=== PATIENT | female | born 1955 | race Caucasian/White ===

== ENCOUNTER 2016-10-15 10:24 | Observation (INO) | payer OTHER ==
[~2016-10-15] VITALS: Ht 165.1 cm; Wt 75.0 kg
[2016-10-15 11:04] LABS: BASOPHILS 0.6 % (0-2); EOSINOPHILS 3.2 % (0-7); HEMATOCRIT 42.4 % (36.0-48.0); HEMOGLOBIN 14.7 g/dL (12-16); IMMATURE GRANULOCYTES 0.1 % (0-5); LYMPHOCYTES 20.8 % (15-50); MCH 33.8 pg (26.0-34.0); MCHC 34.7 g/dL (31.0-37.0); MCV 97.5 fL (80.0-100.0); MEAN PLATELET VOLUME 10.6 fL (7.4-10.4); MONOCYTES 5.3 % (2-11); PLATELET COUNT 258 10x3/uL (130-400); RBC 4.35 10x6/uL (4.00-5.40); RDW 12.3 % (11.5-14.5); WBC 9.1 10x3/uL (4.8-10.8)
[2016-10-15 11:06] LABS: APPEARANCE CLEAR (CLEAR); BILIRUBIN NEGATIVE (NEGATIVE); COLOR YELLOW (YELLOW); GLUCOSE NEGATIVE (NEGATIVE); KETONE NEGATIVE (NEGATIVE); LEUKOCYTE ESTERASE NEGATIVE (NEGATIVE); NITRITE NEGATIVE (NEGATIVE); PROTEIN NEGATIVE (NEGATIVE); SPECIFIC GRAVITY 1.015 (1.005-1.020); UROBILINOGEN NORMAL (NORMAL)
[2016-10-15 11:16] LABS: INR 0.93 (0.85-1.17); PROTIME 12.3 SECONDS (11.6-15.0)
[2016-10-15 11:22] LABS: ALBUMIN 3.8 g/dL (3.4-5.0); ALKALINE PHOSPHATASE 75 U/L (46-116); ALT (SGPT) 34 U/L (10-68); BILIRUBIN - TOTAL 0.42 mg/dL (0.2-1.3); CALC OSMOLALITY 282 mosm/kg (275-300); CALCIUM 9.5 mg/dL (8.5-10.1); CARBON DIOXIDE 26.9 mmol/L (21.0-32.0); CHLORIDE - SERUM 107 mmol/L (98-107); CREATININE - SERUM 0.8 mg/dL (0.6-1.3); GLUCOSE 108 mg/dL (74-106); PROTEIN - SERUM 6.9 g/dL (6.4-8.2); SODIUM 141 mmol/L (136-145); UREA NITROGEN 15 mg/dL (7-18); eGFR NON AFRICAN AMERICAN 78 mL/min (90-120)
--- NOTE | 2016-10-15 13:03 | NUR ---
RECEIVED PT TO ROOM 2213 VIA WHEELCHAIR, PT ACCOMPANIED BY RENY. PT ORIENTED TO ROOM AND CALL LIGHT. IV NOTED TO RT HAND SL. WILL ASSESS PT AND START PLAN OF CARE.
[2016-10-15 13:37] VITALS: Ht 165.1 cm; Wt 75.0 kg
[2016-10-15 14:53] LABS: BASOPHILS 0.5 % (0-2); EOSINOPHILS 3.4 % (0-7); HEMATOCRIT 39.9 % (36.0-48.0); HEMOGLOBIN 13.6 g/dL (12-16); IMMATURE GRANULOCYTES 0.3 % (0-5); LYMPHOCYTES 28.6 % (15-50); MCH 33.1 pg (26.0-34.0); MCHC 34.1 g/dL (31.0-37.0); MCV 97.1 fL (80.0-100.0); MEAN PLATELET VOLUME 10.5 fL (7.4-10.4); MONOCYTES 7.3 % (2-11); NEUTROPHILS 59.9 % (40-80); PLATELET COUNT 233 10x3/uL (130-400); RBC 4.11 10x6/uL (4.00-5.40); RDW 12.3 % (11.5-14.5); WBC 7.4 10x3/uL (4.8-10.8)
--- NOTE | 2016-10-15 15:11 | NUR ---
PAGED CYRIL ANDRADE, WAITING ON HER TO CALL BACK.
--- NOTE | 2016-10-15 16:20 | NUR ---
PAGED DR. GELLER WAITING ON HIM TO CALL BACK. 1625- RECEIVED CALL BACK FROM DR. GELLER. INFORMED THAT PT IS C/O PAIN TO ABD THAT RADIATES TO BACK, WANTS SOMTHING FOR PAIN. DR. GELLER STATED TO ORDER DEMEROL 25MG Q6PRN.
--- NOTE | 2016-10-15 16:41 | NUR ---
ADMINSITERED 25MG OF DEMEROL FOR PAIN LEVEL OF 10/10. PROTONIX DRIP STATED INFUSING AT THIS TIME. PT DENIES ANY NEEDS AT THIS TIME. CALL LIGHT IN REACH, NAD NOTED, WILL CONTINUE TO MONITOR.
[2016-10-15] MEDS ORDERED: LEXAPRO10 MG PO (17:03)
[2016-10-15] MEDS ORDERED: HYZAAR 50-12.51 TAB PO (17:03)
[2016-10-15] MEDS ORDERED: NEXIUM40 MG PO (17:03)
[2016-10-15] MEDS ORDERED: KLONOPIN0.5 MG PO (17:04)
[2016-10-15] MEDS ORDERED: BAYER CHEWABLE81 MG PO (17:05)
[2016-10-15] MEDS ORDERED: VOLTAREN75 MG PO (17:14)
[2016-10-15] MEDS ORDERED: FAMVIR500 MG PO (17:15)
--- NOTE | 2016-10-15 18:12 | NUR ---
RATIONAL FOR SCD'S EXPLAINED TO PT, PT REFUSED TO WEAR SCD'S AT THIS TIME.
--- NOTE | 2016-10-15 19:45 | NUR ---
RECIEVED SHIFT REPORT. PT IS LYING IN BED. ALERT AND ORIENTED AND ABLE TO VERBALIZE NEEDS. IV IS PATENT AND FLUIDS ARE RUNNING PER ORDER. PT IS AMBULATORY BUT WAS INSTRUCTED TO CALL FOR ANY ASSISTANCE NEEDED. PT STATES PAIN IS 8/10. NO NEEDS ARE VERBALIZED AT THIS TIME. WILL CONTINUE TO MONITOR. SIDE RAILS ARE UP X 2. BED IS IN LOWEST POSITION. CALL LIGHT IS WITHIN REACH.
[2016-10-15 20:00] VITALS: BP 107/67
--- NOTE | 2016-10-15 20:10 | NUR ---
SHIFT ASSESSMENT COMPLETED. PT STATUS REMAINS UNCHANGED FROM PREVIOUS. NO NEEDS ARE VOICED. WILL MONITOR. SIDE RAILS X 2. BED LOW. CALL LIGHT IN REACH.
[2016-10-15 22:21] LABS: BASOPHILS 0.7 % (0-2); HEMATOCRIT 39.9 % (36.0-48.0); HEMOGLOBIN 13.5 g/dL (12-16); IMMATURE GRANULOCYTES 0.1 % (0-5); LYMPHOCYTES 29.5 % (15-50); MCH 33.3 pg (26.0-34.0); MCHC 33.8 g/dL (31.0-37.0); MCV 98.3 fL (80.0-100.0); MEAN PLATELET VOLUME 10.5 fL (7.4-10.4); MONOCYTES 6.8 % (2-11); NEUTROPHILS 59.9 % (40-80); PLATELET COUNT 221 10x3/uL (130-400); RBC 4.06 10x6/uL (4.00-5.40); RDW 12.5 % (11.5-14.5); WBC 7.6 10x3/uL (4.8-10.8)
[2016-10-16] VITALS: BP 104/68
[2016-10-16 02:03] LABS: BASOPHILS 0.6 % (0-2); EOSINOPHILS 4.1 % (0-7); HEMATOCRIT 40.2 % (36.0-48.0); HEMOGLOBIN 13.8 g/dL (12-16); IMMATURE GRANULOCYTES 0.1 % (0-5); LYMPHOCYTES 29.6 % (15-50); MCH 33.5 pg (26.0-34.0); MCHC 34.3 g/dL (31.0-37.0); MCV 97.6 fL (80.0-100.0); MEAN PLATELET VOLUME 10.2 fL (7.4-10.4); MONOCYTES 7.1 % (2-11); NEUTROPHILS 58.5 % (40-80); PLATELET COUNT 215 10x3/uL (130-400); RBC 4.12 10x6/uL (4.00-5.40); RDW 12.5 % (11.5-14.5); WBC 7.1 10x3/uL (4.8-10.8)
[2016-10-16 04:00] VITALS: BP 109/72
[2016-10-16 07:13] LABS: BASOPHILS 0.8 % (0-2); EOSINOPHILS 3.4 % (0-7); HEMATOCRIT 41.9 % (36.0-48.0); HEMOGLOBIN 14.4 g/dL (12-16); LYMPHOCYTES 31.3 % (15-50); MCH 33.8 pg (26.0-34.0); MCHC 34.4 g/dL (31.0-37.0); MCV 98.4 fL (80.0-100.0); MEAN PLATELET VOLUME 10.6 fL (7.4-10.4); MONOCYTES 6.2 % (2-11); NEUTROPHILS 58.3 % (40-80); PLATELET COUNT 251 10x3/uL (130-400); RBC 4.26 10x6/uL (4.00-5.40); RDW 12.6 % (11.5-14.5); WBC 6.1 10x3/uL (4.8-10.8)
[2016-10-16 07:37] LABS: CALC OSMOLALITY 284 mosm/kg (275-300); CARBON DIOXIDE 29.6 mmol/L (21.0-32.0); CHLORIDE - SERUM 107 mmol/L (98-107); CREATININE - SERUM 0.8 mg/dL (0.6-1.3); GLUCOSE 93 mg/dL (74-106); POTASSIUM - SERUM 3.8 mmol/L (3.5-5.1); SODIUM 143 mmol/L (136-145); UREA NITROGEN 12 mg/dL (7-18); eGFR NON AFRICAN AMERICAN 78 mL/min (90-120)
[2016-10-16 08:25] VITALS: BP 133/83
--- NOTE | 2016-10-16 10:43 | NUR ---
Nurse Loan called stated patient very upset because nurse placed on isolation for outbreak of herpes. I spoke with patient regarding illness. She has had multilple outbreaks in her life. Explained to patient that because this was not the primary outbreak contact isolation was not required but she must keep lesions covered with underwear. Spoke with [employer] explained the removal of isolation. Explained to patient that nursing was using safety precautions until they could reach me. PATIENT VOICES UNDERSTANDING SHE IS NO LONGER ANGRY WITH STAFF. BROCHURE FROM [facility] FAQ GIVEN TO PATIENT EDUCATIONAL MATERIAL.
--- NOTE | 2016-10-16 10:50 | NUR ---
AMBULATING IN ROOM AT THIS TIME. DENIES NEEDS. RESPIRATIONS EVEN AND NON LABORED. CALL LIGHT IN REACH, WILL CONTINUE WITH PLAN OF CARE.
--- NOTE | 2016-10-16 11:45 | NUR ---
AMBULATING IN HALLWAYS AT THIS TIME.
[2016-10-16] MEDS ORDERED: FAMVIR500 MG PO (13:30)
--- NOTE | 2016-10-16 13:34 | NUR ---
FOLLOW UP PAPERWORK REVIEWED WITH PT. DENIES QUESTIONS OR CONCERNS. WILL D/C HOME.
== END 2016-10-16 13:34 | disposition home or self-care (01) ==
LOC: D.ER 10:24 → D.MS 12:36 → OBSVTIME 12:36 → D.MS 10-16 13:34
PROVIDERS: Emergency Medicine; ADMIT Family Medicine
DX: K92.2 Gastrointestinal hemorrhage, unspecified (principal); I10 Essential (primary) hypertension; E78.5 Hyperlipidemia, unspecified; D64.9 Anemia, unspecified; K21.9 Gastro-esophageal reflux disease without esophagitis

== ENCOUNTER → 2016-12-07 10:53 | Outpatient (CLI) | payer OTHER ==
[2016-10-15 13:37] VITALS: BMI 27.5
[~2016-12-07 10:53] MED LIST: BAYER CHEWABLE81 MG PO; FAMVIR500 MG PO; HYZAAR 50-12.51 TAB PO; KLONOPIN0.5 MG PO; LEXAPRO10 MG PO; NEXIUM40 MG PO; VOLTAREN75 MG PO
[2016-12-07 12:13] LABS: T4 THYROXIN - FREE 0.87 ng/dL (0.76-1.46); THYROID STIMULATING HORMONE 2.54 uIU/mL (0.36-3.74)
== END | disposition home or self-care (01) ==
LOC: D.RAD 10:53
PROVIDERS: Internal Medicine Gastroenterology
DX: K59.00 Constipation, unspecified (principal); R10.9 Unspecified abdominal pain

== ENCOUNTER 2018-09-02 07:05 | Inpatient (IN) | payer SELFPAY ==
[~2018-09-02] VITALS: Ht 165.1 cm; Wt 77.1 kg
[2018-09-02] MEDS ORDERED: ZOCOR40 MG PO (07:36)
[2018-09-02 07:55] LABS: BASOPHILS 0.1 % (0-2); EOSINOPHILS 0.5 % (0-7); HEMATOCRIT 40.9 % (36.0-48.0); HEMOGLOBIN 14.1 g/dL (12-16); IMMATURE GRANULOCYTES 0.2 % (0-5); MCH 33.2 pg (26.0-34.0); MCHC 34.5 g/dL (31.0-37.0); MCV 96.2 fL (80.0-100.0); MEAN PLATELET VOLUME 10.2 fL (7.4-10.4); MONOCYTES 4.5 % (2-11); NEUTROPHILS 88.7 % (40-80); PLATELET COUNT 223 10x3/uL (130-400); RBC 4.25 10x6/uL (4.00-5.40); RDW 12.6 % (11.5-14.5); WBC 15.2 10x3/uL (4.8-10.8)
[2018-09-02 07:56] LABS: APPEARANCE CLEAR (CLEAR); BILIRUBIN NEGATIVE (NEGATIVE); COLOR YELLOW (YELLOW); GLUCOSE NEGATIVE (NEGATIVE); KETONE SMALL mg/dL (NEGATIVE); NITRITE NEGATIVE (NEGATIVE); PROTEIN TRACE mg/dL (NEGATIVE); SPECIFIC GRAVITY 1.005 (1.005-1.020); UROBILINOGEN NORMAL (NORMAL)
[2018-09-02 07:57] LABS: ALBUMIN 3.4 g/dL (3.4-5.0); ALKALINE PHOSPHATASE 63 U/L (46-116); ALT (SGPT) 38 U/L (10-68); BACTERIA FEW /hpf (NONE SEEN); BILIRUBIN - TOTAL 0.68 mg/dL (0.2-1.3); CALC OSMOLALITY 276 mosm/kg (275-300); CALCIUM 9.8 mg/dL (8.5-10.1); CARBON DIOXIDE 24.4 mmol/L (21.0-32.0); CHLORIDE - SERUM 104 mmol/L (98-107); CREATININE - SERUM 0.8 mg/dL (0.6-1.3); EPITHELIAL CELLS OCC /hpf (0-5); GLUCOSE 113 mg/dL (74-106); MUCUS <1+ /lpf (NONE SEEN); POTASSIUM - SERUM 3.8 mmol/L (3.5-5.1); PROTEIN - SERUM 7.2 g/dL (6.4-8.2); RED CELLS - URINE 0-5 /hpf (0-5); SODIUM 138 mmol/L (136-145); UREA NITROGEN 13 mg/dL (7-18); WHITE CELLS - URINE RARE /hpf (0-5); eGFR NON AFRICAN AMERICAN 77 mL/min (90-120)
[2018-09-02 08:00] LABS: AMYLASE - SERUM 20 U/L (25-115); LIPASE 77 U/L (73-393); TROPONIN-I < 0.017 ng/mL (0.000-0.060)
[2018-09-02] MEDS ORDERED: BAYER CHEWABLE81 MG PO (11:47)
--- NOTE | 2018-09-02 12:56 | MORECARE ---
CASE MANAGEMENT DISCHARGE SUMMARY PATIENT: ONEAL AMBRIZ UNIT: [id number] ADM DATE: 09/02/18 AGE: 63 : 59 SEX: F ROOM/BED: D.2231 AUTHOR: DANYELLDOC PHYSICIAN: REFERRING PHYSICIAN: MARIIA JOSE DO DATE OF SERVICE: 09/02/18 Discharge Plan Patient Name: ONEAL AMBRIZ Facility: [facility]:[place] : 1955 Planned Disposition: Home Anticipated Discharge Date: 09/07/18 Discharge Date: Expected LOS: 5 Initial Reviewer: [email or web address] Initial Review Date: 09/02/2018 Generated: 09/02/18 1:56 pm DCP- Discharge Planning Updated by [email or web address]: Emily Danielle on 09/02/18 11:[address] Patient Name: ONEAL AMBRIZ Admission Status: ER Accout number: [id number] Admission Date: 09-02-2018 : 1955 Admission Diagnosis: Attending: MARIIA JOSE Current LOS: 1 Anticipated DC Date: 09-07-2018 Planned Disposition: Home Primary Insurance: UNINSURED DISCOUNT PLAN Discharge Planning Comments: CM met with patient to complete initial dc planning assessment. CM educated patient on the CM role and verbal consent given by patient to complete assessment. CM verified patient's address, phone number, and emergency contact phone numbers. Patient lives at home with hr and report she is independent in her care at home. At discharge patient plans to return home and feels this is a safe discharge. CM discussed availability of home health, rehab services, and medical equipment. Patient denied known discharge needs at this time. Patient reports her will transport her home at time of discharge. CM will continue to follow and will assist as needed with dc plans/needs. Tunnel Heading Supervisor: Emily Danielle RN, [facility] DCPIA - Discharge Planning Initial Assessment Updated by [email or web address]: Emily Danielle on 09/02/18 12:52 pm * Is the patient Alert and Oriented? Yes * How many steps to enter\exit or inside your home? None * PCP Dr Noonan * Pharmacy [facility] or [facility] mail order * Preadmission Environment Home with Family * ADLs Independent * Equipment None * List name and contact numbers for known caregivers / representatives who currently or will assist patient after discharge: Ryley Ambriz - spouse - [phone] * Verbal permission to speak to the caregivers and representatives has been obtained from the patient. Yes * Community resources currently utilized None * Additional services required to return to the preadmission environment? No * Can the patient safely return to the preadmission environment? Yes * Has this patient been hospitalized within the prior 30 days at any hospital? No Patient Name: ONEAL AMBRIZ Page [id number] at 1256 All edits/amendments must be made on the electronic document DICTATION DATE: 09/02/18 1256 TENNIS CENTRE MANAGER: NAI 09/02/18 1256 RPT#: [id number] DC DATE: STATUS: ADM IN [facility] [address] [place] [address] END OF REPORT
[2018-09-02 15:34] VITALS: BP 111/78; BMI 28.3
[2018-09-02 16:56] VITALS: BP 111/78
[2018-09-02 20:00] VITALS: BP 109/68
[2018-09-03] VITALS: BP 100/71
[2018-09-03 04:00] VITALS: BP 106/74
[2018-09-03 05:26] LABS: BASOPHILS 0.1 % (0-2); EOSINOPHILS 0.3 % (0-7); HEMATOCRIT 36.8 % (36.0-48.0); HEMOGLOBIN 12.7 g/dL (12-16); IMMATURE GRANULOCYTES 0.2 % (0-5); LYMPHOCYTES 8.3 % (15-50); MCH 32.9 pg (26.0-34.0); MCHC 34.5 g/dL (31.0-37.0); MCV 95.3 fL (80.0-100.0); MEAN PLATELET VOLUME 10.3 fL (7.4-10.4); MONOCYTES 6.5 % (2-11); NEUTROPHILS 84.6 % (40-80); PLATELET COUNT 207 10x3/uL (130-400); RBC 3.86 10x6/uL (4.00-5.40); RDW 12.4 % (11.5-14.5); WBC 13.2 10x3/uL (4.8-10.8)
[2018-09-03 05:47] LABS: ALBUMIN 2.9 g/dL (3.4-5.0); ALKALINE PHOSPHATASE 58 U/L (46-116); ALT (SGPT) 31 U/L (10-68); BILIRUBIN - TOTAL 1.08 mg/dL (0.2-1.3); CALC OSMOLALITY 273 mosm/kg (275-300); CALCIUM 9.4 mg/dL (8.5-10.1); CARBON DIOXIDE 26.3 mmol/L (21.0-32.0); CHLORIDE - SERUM 100 mmol/L (98-107); CREATININE - SERUM 0.8 mg/dL (0.6-1.3); GLUCOSE 113 mg/dL (74-106); POTASSIUM - SERUM 3.6 mmol/L (3.5-5.1); PROTEIN - SERUM 6.7 g/dL (6.4-8.2); SODIUM 137 mmol/L (136-145); UREA NITROGEN 10 mg/dL (7-18); eGFR NON AFRICAN AMERICAN 77 mL/min (90-120)
[2018-09-03 12:43] VITALS: BP 108/66
[2018-09-03 14:06] VITALS: BMI 28.2
[2018-09-03 14:15] LABS: APTT 31.3 SECONDS (22.8-39.4); INR 1.21 (0.85-1.17); PROTIME 14.8 SECONDS (11.6-15.0)
[2018-09-03 15:11] VITALS: Ht 165.1 cm; Wt 77.1 kg
[2018-09-03 16:29] VITALS: BP 114/66
[2018-09-03 20:00] VITALS: BP 115/78
[2018-09-04 06:52] LABS: BASOPHILS 0.1 % (0-2); EOSINOPHILS 1.6 % (0-7); HEMATOCRIT 34.6 % (36.0-48.0); HEMOGLOBIN 11.9 g/dL (12-16); IMMATURE GRANULOCYTES 0.3 % (0-5); LYMPHOCYTES 11.1 % (15-50); MCH 32.4 pg (26.0-34.0); MCHC 34.4 g/dL (31.0-37.0); MCV 94.3 fL (80.0-100.0); MEAN PLATELET VOLUME 10.1 fL (7.4-10.4); MONOCYTES 6.9 % (2-11); PLATELET COUNT 233 10x3/uL (130-400); RBC 3.67 10x6/uL (4.00-5.40); RDW 12.2 % (11.5-14.5); WBC 11.1 10x3/uL (4.8-10.8)
[2018-09-04 06:59] LABS: ALBUMIN 2.5 g/dL (3.4-5.0); ALKALINE PHOSPHATASE 49 U/L (46-116); BILIRUBIN - TOTAL 0.39 mg/dL (0.2-1.3); CALCIUM 8.9 mg/dL (8.5-10.1); CARBON DIOXIDE 25.2 mmol/L (21.0-32.0); CHLORIDE - SERUM 105 mmol/L (98-107); CREATININE - SERUM 0.7 mg/dL (0.6-1.3); GLUCOSE 85 mg/dL (74-106); POTASSIUM - SERUM 3.3 mmol/L (3.5-5.1); SODIUM 139 mmol/L (136-145); eGFR NON AFRICAN AMERICAN 90 mL/min (90-120)
[2018-09-04 07:00] LABS: ALT (SGPT) 22 U/L (10-68); CALC OSMOLALITY 276 mosm/kg (275-300); UREA NITROGEN 13 mg/dL (7-18)
[2018-09-04 09:44] VITALS: BP 120/85
[2018-09-04 12:00] VITALS: BP 111/63
[2018-09-04 16:23] LABS: APPEARANCE CLEAR (CLEAR); BILIRUBIN NEGATIVE (NEGATIVE); COLOR YELLOW (YELLOW); GLUCOSE NEGATIVE (NEGATIVE); KETONE NEGATIVE (NEGATIVE); NITRITE NEGATIVE (NEGATIVE); PROTEIN NEGATIVE (NEGATIVE); SPECIFIC GRAVITY 1.015 (1.005-1.020); UROBILINOGEN NORMAL (NORMAL)
[2018-09-04 18:35] VITALS: BP 105/76
[2018-09-04 20:00] VITALS: BP 121/81
[2018-09-05 04:00] VITALS: BP 116/71
[2018-09-05 05:05] LABS: BASOPHILS 0.2 % (0-2); EOSINOPHILS 2.7 % (0-7); HEMATOCRIT 32.5 % (36.0-48.0); HEMOGLOBIN 11.3 g/dL (12-16); IMMATURE GRANULOCYTES 0.1 % (0-5); LYMPHOCYTES 13.3 % (15-50); MCH 32.7 pg (26.0-34.0); MCHC 34.8 g/dL (31.0-37.0); MCV 93.9 fL (80.0-100.0); MEAN PLATELET VOLUME 9.8 fL (7.4-10.4); MONOCYTES 8.7 % (2-11); PLATELET COUNT 245 10x3/uL (130-400); RBC 3.46 10x6/uL (4.00-5.40); RDW 12.4 % (11.5-14.5); WBC 9.8 10x3/uL (4.8-10.8)
[2018-09-05 05:49] LABS: ALBUMIN 2.3 g/dL (3.4-5.0); ALKALINE PHOSPHATASE 44 U/L (46-116); ALT (SGPT) 23 U/L (10-68); BILIRUBIN - TOTAL 0.34 mg/dL (0.2-1.3); CALC OSMOLALITY 281 mosm/kg (275-300); CALCIUM 8.5 mg/dL (8.5-10.1); CHLORIDE - SERUM 109 mmol/L (98-107); CREATININE - SERUM 0.7 mg/dL (0.6-1.3); GLUCOSE 93 mg/dL (74-106); POTASSIUM - SERUM 3.4 mmol/L (3.5-5.1); PROTEIN - SERUM 5.6 g/dL (6.4-8.2); SODIUM 142 mmol/L (136-145); eGFR NON AFRICAN AMERICAN 90 mL/min (90-120)
[2018-09-05 06:00] LABS: UREA NITROGEN 9 mg/dL (7-18)
[2018-09-05 09:38] VITALS: BP 134/84
[2018-09-05] MEDS ORDERED: LEVAQUIN750 MG PO (12:53)
[2018-09-05] MEDS ORDERED: FOLIC ACID1 MG PO (12:53)
[2018-09-05] MEDS ORDERED: FLAGYL500 MG PO (12:53)
[2018-09-05] MEDS ORDERED: VITAMIN B-1100 M1 PO (12:53)
--- NOTE | 2018-09-06 11:56 | MORECARE ---
CASE MANAGEMENT DISCHARGE SUMMARY PATIENT: ONEAL AMBRIZ UNIT: [id number] ADM DATE: 09/02/18 AGE: 63 : 59 SEX: F ROOM/BED: D.2231 AUTHOR: ADARSH CHILD PHYSICIAN: REFERRING PHYSICIAN: MARIIA JOSE DO DATE OF SERVICE: 09/06/18 Discharge Plan Patient Name: ONEAL AMBRIZ Facility: [facility]:[place] : 1955 Planned Disposition: Home Anticipated Discharge Date: 09/07/18 Discharge Date: 09/05/2018 Expected LOS: 5 Initial Reviewer: [email or web address] Initial Review Date: 09/02/2018 Generated: 09/06/18 12:56 pm DCP- Discharge Planning Updated by [email or web address]: Emily Danielle on 09/02/18 11:[address] Patient Name: ONEAL AMBRIZ Admission Status: ER Accout number: [id number] Admission Date: 09-02-2018 : 1955 Admission Diagnosis: Attending: MARIIA JOSE Current LOS: 1 Anticipated DC Date: 09-07-2018 Planned Disposition: Home Primary Insurance: UNINSURED DISCOUNT PLAN Discharge Planning Comments: CM met with patient to complete initial dc planning assessment. CM educated patient on the CM role and verbal consent given by patient to complete assessment. CM verified patient's address, phone number, and emergency contact phone numbers. Patient lives at home with hr and report she is independent in her care at home. At discharge patient plans to return home and feels this is a safe discharge. CM discussed availability of home health, rehab services, and medical equipment. Patient denied known discharge needs at this time. Patient reports her will transport her home at time of discharge. CM will continue to follow and will assist as needed with dc plans/needs. Edgerman: Emily Danielle RN, [facility] DCPIA - Discharge Planning Initial Assessment Updated by [email or web address]: Emily Danielle on 09/02/18 12:52 pm * Is the patient Alert and Oriented? Yes * How many steps to enter\exit or inside your home? None * PCP Dr Noonan * Pharmacy [facility] or [facility] mail order * Preadmission Environment Home with Family * ADLs Independent * Equipment None * List name and contact numbers for known caregivers / representatives who currently or will assist patient after discharge: Ryley Ambriz - [facility] - [phone] * Verbal permission to speak to the caregivers and representatives has been obtained from the patient. Yes * Community resources currently utilized None * Additional services required to return to the preadmission environment? No * Can the patient safely return to the preadmission environment? Yes * Has this patient been hospitalized within the prior 30 days at any hospital? No Last DP export: 09/02/18 11:56 a Patient Name: ONEAL AMBRIZ Page [id number] at 1156 All edits/amendments must be made on the electronic document DICTATION DATE: 09/06/18 1156 HEAT AND FROST INSULATOR HELPER: NAI 09/06/18 1156 RPT#: [id number] DC DATE:09/05/18 STATUS: DIS IN [facility] [address] [place] [address] END OF REPORT
== END 2018-09-05 16:04 | disposition home or self-care (01) | DRG 392 ==
LOC: D.ER 07:05 → D.MS 10:34
PROVIDERS: Emergency Medicine; Surgery; ADMIT Family Medicine; ATTEND Family Medicine
DX: K57.20 Diverticulitis of large intestine with perforation and abscess without bleeding (principal); E86.0 Dehydration; E78.5 Hyperlipidemia, unspecified; I10 Essential (primary) hypertension; F41.8 Other specified anxiety disorders; K66.8 Other specified disorders of peritoneum

== ENCOUNTER → 2018-09-13 08:33 | Outpatient (CLI) | payer OTHER ==
[2018-09-03 15:11] VITALS: BMI 28.3
[~2018-09-13 08:33] MED LIST changes: +FLAGYL500 MG PO; +FOLIC ACID1 MG PO; +LEVAQUIN750 MG PO; +VITAMIN B-1100 M1 PO; +ZOCOR40 MG PO
== END | disposition home or self-care (01) ==
LOC: D.MRI 08:33
PROVIDERS: ATTEND Family Medicine
DX: K76.0 Fatty (change of) liver, not elsewhere classified (principal)

== ENCOUNTER → 2018-09-30 08:39 | Outpatient (CLI) | payer OTHER ==
[2018-09-03 15:11] VITALS: BMI 28.3
== END | disposition home or self-care (01) ==
LOC: D.MRI 09-20 13:30 → D.RAD 09-20 14:30
PROVIDERS: ATTEND Orthopaedic Surgery
DX: M75.122 Complete rotator cuff tear or rupture of left shoulder, not specified as traumatic (principal)

== ENCOUNTER 2018-10-11 06:00 | Day surgery (SDC) | payer OTHER ==
[2018-10-10 09:46] LABS: HEMATOCRIT 38.9 % (36.0-48.0); HEMOGLOBIN 13.7 g/dL (12-16); MCH 32.8 pg (26.0-34.0); MCHC 35.2 g/dL (31.0-37.0); MCV 93.1 fL (80.0-100.0); MEAN PLATELET VOLUME 9.7 fL (7.4-10.4); RBC 4.18 10x6/uL (4.00-5.40); RDW 12.6 % (11.5-14.5); WBC 9.1 10x3/uL (4.8-10.8)
[~2018-10-11] VITALS: Ht 165.1 cm; Wt 78.0 kg
[2018-10-11 07:55] VITALS: BP 108/73; Ht 165.1 cm; Wt 78.0 kg
[2018-10-11] MEDS ORDERED: HYDROCODON-ACE1 EA10 PO (10:38)
[2018-10-11] MEDS ORDERED: VISTARIL50 MG PO (10:38)
--- NOTE | 2018-10-11 10:56 | NUR ---
C\O CHEST PAIN ON ADMIT EKG ORDERES AND DILAUDID GIVEN
--- NOTE | 2018-10-11 11:12 | NUR ---
PT. STATES PAIN @ BACK OF SHOULDER BLADE NOT IN FRONT OF CHEST
--- NOTE | 2018-10-11 11:47 | NUR ---
OK TO GO TO OP SHOULDER PAIN TOLERABLE OK PER ANESTHESIA
--- NOTE | 2018-10-11 11:51 | OP ---
PATIENT NAME: ONEAL AMBRIZ MEDICAL RECORD: [id number] :[birth year] LOCATION:[facility] ADMISSION DATE: SURGEON: COLLIN MCCRARY DO DATE OF OPERATION: 10/11/2018 PROCEDURE PERFORMED: Left shoulder arthroscopy with biceps tenodesis, labral debridement, subacromial decompression, distal clavicle excision. PREOPERATIVE DIAGNOSES: Left shoulder labral tear, subacromial impingement, and acromioclavicular joint arthritis. POSTOPERATIVE DIAGNOSES: Left shoulder labral tear, subacromial impingement, and acromioclavicular joint arthritis. INDICATIONS: Ms. Ambriz is a 63-year-old female who has had left shoulder pain for quite some time. She has tried all manner of nonoperative treatment. She does not remember dislocating the shoulder, but she thinks she did at some point and went back in. She has had this for years. She does not know how long and has had some instability type symptoms; however, that has not come out or she had more pain with Gilford's testing and Speed's and pain with overhead lifting. MRI was done, which showed a 360 labral tear, with no evidence of fraying or actual tear and also AC joint arthritis and subacromial impingement type picture, but no rotator cuff tear. I informed her that we could unstable in the OR, I would do a labral repair; however, due to her being 63 and not doing a lot of physical activities, a labral repair may be kind of overkill for this, but I would probably do a bicep tenotomy or tenodesis and avoid that from pulling on the labrum. She was okay with that plan either way and also a subacromial decompression, distal clavicle excision and also look at the rotator cuff. She is aware of the risks including infection, bleeding, damage to nerves and vessels, need for further surgery, and she signed the consent. SURGEON: Collin Mccrary DO DESCRIPTION OF PROCEDURE: The patient received a block by anesthesia in the preoperative area and was taken to the operative suite, given 900 mg of clindamycin preoperatively. The left shoulder was prepped and draped in sterile fashion after she was sedated and LMA was placed. Once she was prepped and draped in sterile fashion, a timeout was performed and everyone was in agreement as to the correct side, site, patient and procedure. The procedure then began by insufflating the shoulder joint with 60 cc of normal saline through an 18-gauge spinal needle from the posterior portal. Posterior portal was then established with an 11-blade scalpel. Trocar was entered into the joint and shoulder was entered in the joint. The camera was entered. The labral tear was seen and the anterior portal was then established with an 18-gauge spinal needle and 11-blade scalpel. A probe was brought in and probed the labrum. It was indeed frayed. The anterior labrum was torn more in the superior anterior to posterior tear and the more of anterior edge of almost a Bankart lesion, but the shoulder itself was not unstable. I could not dislocate the shoulder or any time I would push posterior pressure anterior, it would not sublux completely and it would pop right back in and I had to place centered in the joint. After performing that exam, I debrided the labrum and then did a bicep tenotomy through the anterior portal as a burner. I looked at the rotator cuff on the articular side. Supraspinatus, infraspinatus, subscapularis were all in good shape, no tear was seen in them. I then went to the subacromial space. Lateral portal was established with an 18-gauge spinal needle and 11-blade scalpel, made OPERATIVE REPORT [id number] ONEAL AMBRIZ a subacromial decompression. I removed the distal lateral acromion with a large spur as well as the distal clavicle opening the AC joint up to approximately 7 mm. Any soft tissue was removed at that time and a shaver was brought into the lateral portal and cleaned of the rotator cuff. Any bursa was removed and the rotator cuff was inspected with internal and external rotation. No tears were seen on the bursal side either. Scope was then taken out of the shoulder and incision was made on the anterior humerus. Careful dissection was made down to the humerus and the long head of bicep tendon had been tenotomized was encountered and pulled out through the incision, whipstitched, and then a button was placed on it. A unicortical hole was made in the humerus and the button was placed in the hole and cinched down the bicep tendon and then tied down and then a free needle was used to tie back through the tendon and this was tied down. Excess tendon and suture were then removed. The site was irrigated thoroughly and the incision was closed with 2-0 Vicryl and then 4-0 Monocryl ran on the skin and 2-0 Vicryl in inverted interrupted fashion. Then, the portal sites were closed with 4-0 Monocryl in inverted interrupted fashion. Dermabond was then placed in all the incisions. Telfa and Tegaderm on all of them and she was awakened and taken to recovery in stable condition and placed in a sling. BLOOD LOSS: Minimal. COMPLICATIONS: None. TRANSINT:[id number] Voice Confirmation ID: [id number] DOCUMENT ID: [id number] COLLIN MCCRARY DO at 1151 CC: [id number] DICTATION DATE: 10/11/18 1034 STAINING MACHINE OPERATOR: 10/11/18 1103 PRE [facility] [address] [place] [address]
== END 2018-10-11 14:25 | disposition home or self-care (01) ==
LOC: D.OPS 06:00 → D.PAN 08:30 → D.OPS 10:00
PROVIDERS: Anesthesiology; ATTEND Orthopaedic Surgery
DX: S43.432A Superior glenoid labrum lesion of left shoulder, initial encounter (principal); X58.XXXA Exposure to other specified factors, initial encounter; M75.42 Impingement syndrome of left shoulder; M13.812 Other specified arthritis, left shoulder; Z01.812 Encounter for preprocedural laboratory examination